=== PATIENT | female | born 1975 | race Caucasian/White ===

== ENCOUNTER → 2016-10-02 | Outpatient (CLI) | payer BC ==
[~2016-10-02] MED LIST: ALEVE220 M1; AMOXICILLIN875 MG PO; ATORVASTATIN CA80 MG PO; DIFLUCAN PO; FLEXERIL10 MG PO; KLONOPIN PO; KLONOPIN0.5 MG PO; LISINOPRIL-HCTZ1 T20 PO; MOBIC PO; NAPROXEN PO; NEXIUM PO; NORCO 7.5-3251 EACH PO; OMEPRAZOLE20 M2 PO; PHENTERMINE HCL15 MG PO; PRILOSEC PO; STOMACH MED; VICODIN PO
--- NOTE | ~2016-10-02 | BD1 ---
[facility] A Service of [facility] & [facility] RADIOLOGY TEXT RESULTS PATIENT: JAMES LYLES LOCATION: [facility] : 77 UNIT #: [id number] AGE: [address]: Zeina Rocha MD SEX: F ORDER DR: [id number] [facility] [address] [place] [address] [facility]. [place], [place] [address] [id number] O MR#: [id number] Acc #: [id number] NAME: JAMES LYLES : 1975 SEX: F STUDY DATE/TIME: 10/02/2016 9:42 UNIT: [facility] ROOM: STUDY DESCRIPTION: BD Dexa Bone Dens 1+ Site Attending Physician: Zeina Rocha M.D. Referring Physician: Zeina Rocha M.D. Ordering Physician: Zeina Rocha M.D. Primary Care Physician: Zeina Rocha M.D. MEDICAL IMAGING REPORT This report is preliminary unless electronic signature is present EXAM DXA scan, 10/02/2016 HISTORY Status post menopause with no hormone replacement therapy. Osteopenia. Hysterectomy at age 26 with removal of both ovaries. Family history of osteoporosis in mother. Arthritis. Hypertension with blood pressure medication for 10 years. FINDINGS Bone mineral density in the lumbar spine from L1-L2 was 1.022 g/cm2 which is 0.2 standard deviations below the mean when compared to the young adult reference population which is within the range of normal. This is 0 standard deviations from the mean when compared to the age-matched population. Bone mineral density in the left femoral neck was 0.878 g/cm2 which is 0.3 standard deviations above the mean when compared to the young adult reference population which is within the range of normal. This is 0.5 standard deviations above the mean when compared to the age-matched population. IMPRESSION Bone mineral density in the lumbar spine and left hip within the range of normal. Dictated by... Paramjit Talley M.D. THIS IS AN ELECTRONICALLY VERIFIED REPORT Paramjit Talley M.D. at 10/02/2016 4:58 PM KRT/jw STS. [facility] A Service of [facility] & [facility] RADIOLOGY TEXT RESULTS PATIENT: JAMES LYLES LOCATION: [facility] #: [id number] : 79 UNIT #: [id number] AGE: [address]: Zeina Rocha MD SEX: F ORDER DR: TD: 10/02/2016 12:58 JOB #: [id number] MEDICAL IMAGING REPORT COPY
--- NOTE | ~2016-10-02 | US24 ---
[facility] A Service of [facility] & [facility] RADIOLOGY TEXT RESULTS PATIENT: JAMES LYLES LOCATION: [facility] : 77 UNIT #: [id number] AGE: [address]: Zeina Rocha MD SEX: F ORDER DR: [id number] [facility] [address] [facility]. [place], [place] [address] [id number] O MR#: [id number] Acc #: [id number] NAME: JAMES LYLES : 1975 SEX: F STUDY DATE/TIME: 10/02/2016 9:43 UNIT: [facility] ROOM: STUDY DESCRIPTION: US Breast Unilateral Attending Physician: Zeina Rocha M.D. Referring Physician: Zeina Rocha M.D. Ordering Physician: Zeina Rocha M.D. Primary Care Physician: Zeina Rocha M.D. MEDICAL IMAGING REPORT This report is preliminary unless electronic signature is present EXAM Targeted ultrasound medial hemisphere right breast 10/02/2016 INDICATIONS Correlation with additional mammographic views same date. TECHNIQUE Please refer to the additional views right breast same date. BIRADS: 1 Negative. Dictated by... Bubba Mittal M.D. THIS IS AN ELECTRONICALLY VERIFIED REPORT Bubba Mittal M.D. at 10/02/2016 3:39 PM Tila TD: 10/02/2016 13:12 JOB #: [id number] MEDICAL IMAGING REPORT COPY
--- NOTE | ~2016-10-02 | MY8 ---
[facility] A Service of [facility] & [facility] RADIOLOGY TEXT RESULTS PATIENT: JAMES LYLES LOCATION: [facility] : 79 UNIT #: [id number] AGE: [address]: Zeina Rocha MD SEX: F ORDER DR: [id number] [facility] [address]. [place], [place] [address] [id number] O MR#: [id number] Acc #: [id number] NAME: JAMES LYLES : 1975 SEX: F STUDY DATE/TIME: 10/02/2016 9:26 UNIT: [facility] ROOM: STUDY DESCRIPTION: MY Mammogram Dx Dig Rt Attending Physician: Zeina Rocha M.D. Referring Physician: Zeina Rocha M.D. Ordering Physician: Zeina Rocha M.D. Primary Care Physician: Zeina Rocha M.D. MEDICAL IMAGING REPORT This report is preliminary unless electronic signature is present EXAM Additional views of the right breast and targeted right breast ultrasound 10/02/2016 INDICATION 41-year-old female recalled for an asymmetry in the medial hemisphere right breast on a recent screening mammogram of 09/21/2016. TECHNIQUE Compression CC and rolled CC views of the right breast were obtained and reviewed with an FDA-approved CAD device. Subsequently, targeted ultrasound of the medial hemisphere right breast was also performed. COMPARISON 09/21/2016, 09/19/2015, 08/30/2014, 08/25/2013. FINDINGS MAMMOGRAM: The asymmetry in the medial hemisphere right breast resolves with spot compression. On rolled views, there is no focal asymmetry, area of architectural distortion or focal mass. Given the subtle nature of the finding on the recent screening study and recommendation for 3-D tomographic imaging of this area for further assessment (not available here at [facility]), ultrasound of the medial hemisphere right breast was also performed for further assessment. ULTRASOUND: Imaging of the medial hemisphere right breast was performed and is negative. There is no solid or cystic mass or persistent shadowing abnormality. Imaging findings between modalities are concordant. Absent new or worsening symptoms in either breast, the patient should return for a repeat screening mammogram in 1 year. Findings and recommendations were discussed with the patient and she voiced understanding and agreement. [facility] A Service of [facility] RADIOLOGY TEXT RESULTS PATIENT: JAMES LYLES LOCATION: [facility] : 79 UNIT #: [id number] AGE: [address]: Zeina Rocha MD SEX: F ORDER DR: AYLEEN Additional views of the right breast and targeted right breast ultrasound are negative. Return to annual screening recommended. See discussion above. Patients over the age of 40 are entered into a reminder system with target due date for the next mammogram. A result letter will also be sent to the patient. BIRADS: 1 Negative Dictated by... Bubba Mittal M.D. THIS IS AN ELECTRONICALLY VERIFIED REPORT Bubba Mittal M.D. at 10/02/2016 3:39 PM SOMMER/misty TD: 10/02/2016 13:11 JOB #: [id number] MEDICAL IMAGING REPORT COPY
== END | disposition home or self-care (01) ==
LOC: CWCC 08:42
DX: E28.319 Asymptomatic premature menopause (principal); R92.8 Other abnormal and inconclusive findings on diagnostic imaging of breast
CPT/HCPCS: 76641; 77080; G0206

== ENCOUNTER 2017-04-14 09:06 | Emergency (ER) | payer OTHER ==
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
[~2017-04-14 09:06] MED LIST changes: -AMOXICILLIN875 MG PO; -DIFLUCAN PO; -MOBIC PO; -NORCO 7.5-3251 EACH PO
[2017-04-14] MEDS ORDERED: AMOXICILLIN875 MG PO (12:03)
[2017-04-14] MEDS ORDERED: NORCO 7.5-3251 EACH PO (12:03)
[2017-04-14] MEDS ORDERED: MOBIC PO (12:04)
[2017-04-14] MEDS ORDERED: DIFLUCAN PO (12:04)
== END 2017-04-14 12:07 | disposition home or self-care (01) ==
LOC: SED 09:06
DX: S06.0X0A Concussion without loss of consciousness, initial encounter (principal); S13.4XXA Sprain of ligaments of cervical spine, initial encounter; S23.3XXA Sprain of ligaments of thoracic spine, initial encounter; J32.2 Chronic ethmoidal sinusitis; V49.00XA Driver injured in collision with unspecified motor vehicles in nontraffic accident, initial encounter; Y92.410 Unspecified street and highway as the place of occurrence of the external cause; F17.210 Nicotine dependence, cigarettes, uncomplicated; I10 Essential (primary) hypertension
CPT/HCPCS: 70450; 72125; 99283

== ENCOUNTER 2017-04-17 11:21 | Emergency (ER) | payer OTHER ==
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
[~2017-04-17 11:21] MED LIST changes: +AMOXICILLIN875 MG PO; +DIFLUCAN PO; +MOBIC PO; +NORCO 7.5-3251 EACH PO
[2017-04-17 12:26] LABS: HEMATOCRIT 41.4 % (35.0-45.0); HEMOGLOBIN 14.2 gm/dL (12.0-16.0); MEAN CELL VOLUME 85.2 FL (83-96); MEAN CORPUSCULAR HEMOGLOBIN 29.2 PG (28-34); MEAN CORPUSCULAR HGB CONC 34.3 g/dL (30-36); MEAN PLATELET VOLUME 10.3 FL (6.5-11.5); RED BLOOD COUNT 4.86 X10e (3.90-5.30); WHITE BLOOD COUNT 9.4 X10e3 (4.0-10.5)
[2017-04-17 12:42] LABS: BUN/CREATININE RATIO 24.28; CALCIUM SERUM 8.9 mg/dL (8.4-10.2); CREATININE SERUM 0.7 mg/dL (0.6-1.4); GLOM FILT RATE Estimated 108.4 mL/min (>60); POTASSIUM 3.9 mmol/L (3.5-5.1)
== END 2017-04-17 14:51 | disposition home or self-care (01) ==
LOC: SED 11:21
PROVIDERS: Nurse Practitioner
DX: S16.1XXA Strain of muscle, fascia and tendon at neck level, initial encounter (principal); S46.812A Strain of other muscles, fascia and tendons at shoulder and upper arm level, left arm, initial encounter; F17.210 Nicotine dependence, cigarettes, uncomplicated; Z79.899 Other long term (current) drug therapy; V43.52XA Car driver injured in collision with other type car in traffic accident, initial encounter; Y92.410 Unspecified street and highway as the place of occurrence of the external cause
CPT/HCPCS: 36415; 70450; 72072; 80048; 85027; 96372; 99285; J1885